=== PATIENT | female | born 1965 | race Caucasian/White ===

== ENCOUNTER 2016-12-11 21:15 | Observation (INO) ==
[2016-12-11] MEDS ORDERED: NITROGLYCERIN SL 0.4 MG TABLET SL STA (21:38)
[2016-12-11] MEDS ORDERED: ONDANSETRON 4 MG/2 ML VIAL IV STA (21:38)
[2016-12-11] MEDS ORDERED: KETOROLAC 30 MG/1 ML VIAL IV STA (21:38)
[2016-12-11] MEDS ORDERED: ASPIRIN CHEW 81 MG TABLET PO STA (21:38)
[2016-12-11] MEDS ORDERED: ONDANSETRON 4 MG/2 ML VIAL ONE (21:57)
[2016-12-11] MEDS ORDERED: ASPIRIN 325 MG TABLET ONE (21:58)
[2016-12-11] MEDS ORDERED: NITROGLYCERIN SL 0.4 MG TABLET SL ONE (21:58)
[2016-12-11 22:28] LABS: Basophils % 0.4 % (0.0-0.8); Eosinophils # 0.2 10*3/uL (0.0-0.87); Eosinophils % 2.4 % (0.00-10.9); Hematocrit 37.3 VOL% (35.7-47.0); Hemoglobin 13.6 GM/DL (12.0-16.0); Immature Granulocytes % 0.4 %; Immature Granulocytes Absolute 0.03 #; Lymphocytes # 2.3 10*3/uL (1.4-4.0); Mean Corpuscular HGB Conc 36.5 GM/DL (32-36); Mean Corpuscular Hemoglobin 33 PG (27-34); Mean Corpuscular Volume 89.9 FL (87-102); Monocytes # 0.5 10*3/uL (0.11-0.8); Monocytes % 6.4 % (1.7-12.7); Neutrophils # 4.2 10*3/uL (1.4-7.4); Neutrophils % 58.4 % (38.7-73.9); Platelet Count 193 T/CUMM (130-400); Red Blood Count 4.15 MC/CUMM (3.8-5.5); Red Cell Distribution Width 13.2 % (9.3-17.3); White Blood Count 7.2 T/CUMM (4-12)
[2016-12-11 22:39] LABS: PT Patient Result 10.8 SECS; Partial Thromboplastin Time 25.2 SECS (0-40)
[2016-12-11 22:40] LABS: Apearance,Urine CLEAR (Clear); Bacteria,Urine Occasional /HPF (Few); Bilirubin,Urine Negative (Negative); Blood, Urine Negative (Negative); Glucose,Urine (UA) Negative (Negative); Ketones,Urine Negative (Negative); Mucus,Urine Occasional /LPF (Occasional); Nitrite,Urine Negative (Negative); Protein,Urine Negative; RBC,Urine 2 /HPF (0-4); Squamous Epithelial Cell,Urine Occasional /HPF (0-10); Urine Color Yellow (Yellow); Urine Specific Gravity 1.018 (1.001-1.035); Urine Urobilinogen < 2.0 EU/DL (0.2-1.0); WBC,Urine 5 /HPF (0-6)
[2016-12-11 22:43] LABS: Barbiturates Screen,Urine Negative (Negative); Benzodiazepines Screen,Urine Positive (Negative); Cannabinoid Screen,Urine Negative (Negative); Opiate Screen,Urine Negative (Negative); Phencyclidine Screen,Urine Negative (Negative)
[2016-12-11 22:55] LABS: Alanine Aminotransferase 59 U/L (13-56); Albumin 3.5 G/DL (3.4-5.0); Alkaline Phosphatase 122 U/L (45-117); Aspartate Amino Transferase 57 U/L (0-37); Bilirubin,Total < 0.39 MG/DL (0.2-1.0); Blood Urea Nitrogen 16 MG/DL (7-18); Calcium 8.7 MG/DL (8.5-10.1); Glucose 109 MG/DL (74-106); Osmolality,Calculated 280.4 MOS/KG (273-304); Potassium 3.8 MMOL/L (3.5-5.1); Sodium 140 MMOL/L (136-145); Total Protein 6.8 G/DL (6.4-8.3); Troponin I Only < 0.015 NG/ML (0.00-0.045)
[2016-12-11] MEDS ORDERED: cefTRIAXone 1,000 MG in SODIUM CHLORIDE 0.9% 100 ML IV STA (23:29)
[2016-12-11] MEDS ORDERED: FLUCONAZOLE INJ 200 MG in PREMIX 1 EACH IV ONE (23:29)
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
[2016-12-11] MEDS ORDERED: SODIUM CHLORIDE 0.9% 100 ML IV ONE (23:45)
[2016-12-11] MEDS ORDERED: cefTRIAXone 1,000 MG VIAL ONE (23:45)
[2016-12-12] MEDS ORDERED: ONDANSETRON 4 MG/2 ML VIAL IV PRN (00:09)
[2016-12-12] MEDS ORDERED: PROMETHAZINE 25 MG TABLET PO PRN (01:36)
[2016-12-12] MEDS ORDERED: CYCLOBENZAPRINE 10 MG TABLET PO PRN (01:36)
[2016-12-12] MEDS ORDERED: ONDANSETRON 4 MG TABLET PO PRN (01:36)
[2016-12-12] MEDS ORDERED: DICYCLOMINE 20 MG TABLET PO PRN (01:36)
--- NOTE | 2016-12-12 01:36 | Hospitalist History & Physical ---
Assessment and Plan (1) Headache Status: Acute Current Visit: Yes (2) UTI (urinary tract infection) Status: Acute Current Visit: Yes (3) Chest pain Status: Acute Assessment and plan: Our plan for this patient will be admitting her to our service. She will be admitted to telemetry we will draw serial cardiac enzymes. Will reevaluate patient in the morning. I am going to consult cardiology. Cardiac disease does run in her family. And he does have an exertional component with her chest pain and it radiates to her neck. Continue home meds as appropriate. Current Visit: Yes History of Present Illness Chief complaint: Chest pain and headache History of present illness: Ms. Koehler is a 51 year old female with past medical history significant for meningioma, PTSD and hypertension who presents to our ER tonight. Apparently earlier this week patient was grabbing for something and felt something pull in her chest. She is then developed a chest pain since then. She complains about a heaviness sensation in her chest. She gets diaphoretic it radiates to her neck. It does have an exertional component. Although the stabbing part does sound very atypical and musculoskeletal patient is concerned that it is her heart. She came in for further evaluation. Patient is also complaining about a severe headache. I was consulted to admit her. Home Medications Medication Instructions Recorded Confirmed Type Buspirone HCl 10 mg PO TID 06/27/15 12/11/16 History Gabapentin 600 tablet PO QID 06/27/15 12/11/16 History Lisinopril 10 mg PO DAILY 06/27/15 12/11/16 History Sertraline [Zoloft] 100 mg PO DAILY 06/27/15 12/11/16 History Cyclobenzaprine [Flexeril] 10 mg PO TID PRN #20 tablet 09/01/16 12/11/16 Rx Promethazine Tab [Phenergan Tab] 25 mg PO Q6H PRN #20 tablet 09/01/16 12/11/16 Rx Dicyclomine Cap/Tab [Bentyl 20 mg PO QID PRN #20 tablet 12/06/16 12/11/16 Rx Cap/Tab] Ondansetron [Ondansetron Odt] 8 mg PO Q4H PRN #10 tab.rapdis 12/06/16 12/11/16 Rx Allergies Allergy/AdvReac Type Severity Reaction Status Date / Time Iodinated Contrast Media - Allergy ANAPHYLAXIS Verified 10/18/14 21:03 Oral and promethazine [From Phenergan] Allergy Unknown/Unable Verified 09/01/16 21:14 to obtain diphenhydramine AdvReac Shakiness Verified 10/18/14 21:03 [From Benadryl] ketorolac [From Toradol] AdvReac RASH Verified 12/11/16 21:27 Opioids - Morphine Analogues AdvReac Gastrointestinal Verified 10/18/14 21:03 Upset Medical,Surgical,& Family Hx - Medical History Cardio: History of: Hypertension No history of: CAD Neurology: History of: Migraine Endocrine: No history of: Diabetes Mellitus (IDDM), Diabetes Mellitus (NIDDM) Respiratory: No history of: Asthma, Bronchitis, Pneumonia Renal: No history of: Renal Problems Gastrointestinal: History of: GERD Musculoskeletal: History of: Back/Neck Problems (chronic back pain), Degenerative Disk Disease, Musculoskeletal Problems Other: History of: Miscellaneous Medical Problems (TMJ) - Surgical History Neurologic Surgeries: Surgical HX of: Neurologic Surgery (craniotomy for benign tumor) Abdominal Surgeries: Surgical HX of: Cholecystectomy Reproductive Surgeries: Surgical HX of;: Hysterectomy - Family History Family History: Reports;: Family Heart Disease, Family Hypertension, Family Stroke - Social History Smoking Status: Never smoker Frequency of Alcohol Use: None Type of Drug Use: None 12 point system: reviewed and no additional remarkable complaints except as stated Exam - Constitutional Vitals: Period Temp Pulse Resp BP Sys/Linn Pulse Ox Last 24 Hr 98.4 F-98.4 F 97-105 18-20 141-171/85-101 96-98 General appearance: morbidly obese - Head Head exam: Present: normal inspection - Eye Eye exam: Present: EOMI Pupils: Present: ANTONIA - ENT ENT exam: Present: normal exam - Neck Neck exam: Present: normal inspection - Respiratory Respiratory exam: Present: clear to auscultation bilaterally - Cardiovascular Cardiovascular exam: Present: regular rate and rhythm, other (Patient does have some chest wall tenderness) - GI/Abdominal GI/Abdominal exam: Present: normal bowel sounds - Extremities Exam Extremities exam: Present: normal inspection - Back Exam Back exam: Present: normal inspection - Neurological Exam Neurological exam: Present: alert, oriented X3 - Psychiatric Psychiatric exam: Present: normal affect - Skin Skin exam: Present: normal color Results - Labs CBC & BMP: 12/11/16 21:58 12/11/16 21:58
[2016-12-12] MEDS: MORPHINE 2 MG/1 ML SYRINGE IV PRN ×2 (02:18→06:12)
[2016-12-12 03:08] LABS: Risk Ratio 9.27; VLDL CHOLESTEROL 61.6 MG/DL
[2016-12-12] MEDS ORDERED: NITROGLYCERIN 2% OINT 1 INCH/GM PACK TOP SCH (06:00)
--- NOTE | 2016-12-12 07:28 | CT Report ---
History is headache Comparison 10/20/2014 The ventricles are normal in size No acute intracranial hemorrhage, mass effect, or evidence of acute cortical stroke seen There is a a large craniotomy defect in the right. The right cerebral hemisphere eggs and the mildly into the defect. There may be some minimal overlying chronic cortical loss in this area. Impression: Large craniotomy defect on the right without acute intracranial hemorrhage seen. The CT exam was performed using one or more of the following dose reduction techniques: Automated exposure control, adjustment of the mA and/or kV according to patient size, or use of iterative reconstruction technique. PROCEDURE INTERPRETED AT [facility] DEPARTMENT OF RADIOLOGY Final Report Signed by: Dr. Patricia Freeman
--- NOTE | 2016-12-12 07:32 | XRay Report ---
Exam: XR chest 2V Indication: Chest pain cough Comparison study: 12/05/2016 chest radiograph Findings: The heart, mediastinum and bony structures are stable from prior. There is no focal consolidation, pneumothorax or pleural effusion identified. Impression: No acute cardiopulmonary process. PROCEDURE INTERPRETED AT [facility] DEPARTMENT OF RADIOLOGY Final Report Signed by: Scott Warren
--- NOTE | 2016-12-12 07:45 | EKG Report ---
Stationary ECG Study [facility] ER Test Date: 12/11/2016 9:23:10 PM Pat Name: PATRICE MCEKON Department: Room: 273 Gender: F Touch Up Edger: Yahir : 1965 Requested by: Enzo Ramos Order Number: [id number] Reading MD: KENDRA SINGH Intervals [place] Rate: 108 P: 61 FL: 159 QRS: 70 QRSD: 65 T: 54 QT: 326 QTc: 390 Interpretive Statements SINUS TACHYCARDIA LOW QRS VOLTAGE IN CHEST LEADS ABNORMAL RHYTHM ECG POOR QUALITY BASELINE Electronically Signed On 12-14-16 15:41:27 CDT by KENDRA SINGH [email or web address]
--- NOTE | 2016-12-12 07:56 | EKG Report ---
Stationary ECG Study [facility] Test Date: 12/12/2016 6:37:58 AM Pat Name: PATRICE MCKEON Department: Room: 273 Gender: F Compliance Attorney: POOJA : 1965 Requested by: Enzo Ramos Order Number: [id number] Reading MD: KENDRA SINGH Intervals [place] Rate: 88 P: 61 MD: 141 QRS: 61 QRSD: 78 T: 43 QT: 373 QTc: 419 Interpretive Statements SINUS RHYTHM LOW QRS VOLTAGE IN PRECORDIAL LEADS Electronically Signed On 12-14-16 15:43:56 CDT by KENDRA SINGH [email or web address]
[2016-12-12] MEDS: GABAPENTIN 600 MG TABLET PO SCH ×2 (08:15→13:48)
[2016-12-12] MEDS ORDERED: ENOXAPARIN 40 MG/0.4 ML SYRINGE SUBCUT SCH (09:00)
[2016-12-12] MEDS ORDERED: ASPIRIN EC 325 MG TABLET PO SCH (09:00)
[2016-12-12] MEDS ORDERED: PANTOPRAZOLE 40 MG TABLET PO SCH (09:00)
[2016-12-12] MEDS ORDERED: LISINOPRIL 10 MG TABLET PO SCH (09:00)
[2016-12-12] MEDS ORDERED: SERTRALINE 100 MG TABLET PO SCH (09:00)
[2016-12-12] MEDS ORDERED: busPIRone 10 MG TABLET PO SCH (09:00)
--- NOTE | 2016-12-12 09:18 | Discharge Summary ---
Hospital Course - Hospital Course Hospital Course: 51-year-old female presents to emergency room with complaints of chest pain. She describes it as a sharp pain and radiates to her right shoulder. It comes on and off and she is been asking the nurses for morphine. Her serial troponins are negative. She has had a heart cath in the past and has been negative. Her EKG looks to be in sinus tachycardia with no ST changes. Cholesterol 278 with trigycerides of 308. Cardiology was consulted and will do a outpatient stress test in the next few days. - Time spent with patient Time with patient DS: Less than 30 minutes (20 min) Specialty Discharge - Follow Up or Referrals Follow up with: Andrés Oscar MD [Physician] - ( outpatient cardiac stress test : SaturdayDecember 19 at 815 am. Do not eat or drink anything after midnight the night before , no caffeine, do not take home meds before the test, but bring your home meds with you. Dr. Oscar December 26 at 840 am) Discharge Plan - Discharge Data Disposition: Disch To Home/Self Care Condition at Discharge: Stable Discharge Diet: heart healthy, low fat, low cholesterol Activity: resume usual activities as tolerated Hygiene: no restrictions Weight Bearing at Discharge: full weight bearing - Discharge Medications New Cefuroxime Tab [Ceftin] 500 mg PO BID #6 tablet Aspirin EC Tab 81 mg PO DAILY #30 tablet Atorvastatin [Lipitor] 40 mg PO BEDTIME #30 tablet Continue Sertraline [Zoloft] 100 mg PO DAILY Lisinopril 10 mg PO DAILY Gabapentin 600 tablet PO QID Buspirone HCl 10 mg PO TID Dicyclomine Cap/Tab [Bentyl Cap/Tab] 20 mg PO QID PRN #20 tablet PRN Reason: Abdominal Pain Ondansetron [Ondansetron Odt] 8 mg PO Q4H PRN #10 tab.rapdis PRN Reason: Nausea Cyclobenzaprine [Flexeril] 10 mg PO TID PRN #20 tablet PRN Reason: muscle spasms, pain levETIRAcetam TAB [Keppra Tab] 250 mg PO BID Discontinued Promethazine Tab [Phenergan Tab] 25 mg PO Q6H PRN #20 tablet PRN Reason: nausea, vomiting or headache - Follow Up or Referral Follow Up: Andrés Oscar MD [Physician] - ( outpatient cardiac stress test : SaturdayDecember 19 at 815 am. Do not eat or drink anything after midnight the night before , no caffeine, do not take home meds before the test, but bring your home meds with you. Dr. Oscar December 26 at 840 am) - Forms/Instructions Instructions: Chest Pain (ED) Additional Discharge Instructions: Outpatient stress test for chest pain if okay with cardiology once they have seen her Exam - Constitutional Vitals: Period Temp Pulse Resp BP Sys/Linn Pulse Ox Last 24 Hr 97.0 F-98.6 F 87-105 18-20 119-171/77-101 96-98 General appearance: no acute distress, morbidly obese - Respiratory Respiratory exam: Present: clear to auscultation bilaterally. Absent: rhonchi, wheezes - Cardiovascular Cardiovascular exam: Present: regular rate and rhythm. Absent: systolic murmur - GI/Abdominal GI/Abdominal exam: Present: normal bowel sounds, soft. Absent: tenderness - Extremities Exam Extremities exam: Absent: edema Discharge Results Procedures and tests throughout hospitalization: Pending Orders 12/11/16 Urine Culture Routine Labs on day of discharge: Labs from last 24 hours 12/12/16 12/12/16 12/12/16 07:40 07:15 04:04 WBC RBC Hgb Hct MCV MCH MCHC RDW Plt Count MPV Neut % (Auto) Lymph % (Auto) [place] % (Auto) Eos % (Auto) Baso % (Auto) Neut # (Auto) Lymph # (Auto) [place] # (Auto) Eos # (Auto) Baso # (Auto) Immature Gran % Nucleated RBC % Immature Gran # Nucleated RBCs # INR PT Patient/Control Mix D-Dimer, Quantitative Circ Anticoag PTT Sodium Potassium Chloride Carbon Dioxide Anion Gap BUN Creatinine GFR Calculation BUN/Creatinine Ratio Glucose POC Glucose 98 Calculated Osmolality Calcium Total Bilirubin AST ALT Alkaline Phosphatase Total Creatine Kinase CK-MB (CK-2) Troponin I < 0.015 < 0.015 Total Protein Albumin Globulin Albumin/Globulin Ratio Triglycerides Cholesterol LDL Cholesterol VLDL Cholesterol HDL Cholesterol Heart Disease Risk Ratio Lipase Urine Color Urine Appearance Urine pH Ur Specific [place] Urine Protein Urine Glucose (UA) Urine Ketones Urine Blood Urine Nitrate Urine Bilirubin Urine Urobilinogen Urine Leukocytes Urine RBC Urine WBC Ur Squamous Epith Cells Urine Bacteria Urine Mucus Ur Culture Indicated? Urine Test Urine Opiates Screen Ur Barbiturates Screen Ur Phencyclidine Scrn U Amphetamine/Methamph U Benzodiazepines Scrn U Cocaine Metab Screen U Cannabinoids Screen 12/12/16 12/12/16 12/11/16 02:24 02:24 22:25 WBC RBC Hgb Hct MCV MCH MCHC RDW Plt Count MPV Neut % (Auto) Lymph % (Auto) [place] % (Auto) Eos % (Auto) Baso % (Auto) Neut # (Auto) Lymph # (Auto) [place] # (Auto) Eos # (Auto) Baso # (Auto) Immature Gran % Nucleated RBC % Immature Gran # Nucleated RBCs # INR PT Patient/Control Mix D-Dimer, Quantitative Circ Anticoag PTT Sodium Potassium Chloride Carbon Dioxide Anion Gap BUN Creatinine GFR Calculation BUN/Creatinine Ratio Glucose POC Glucose Calculated Osmolality Calcium Total Bilirubin AST ALT Alkaline Phosphatase Total Creatine Kinase CK-MB (CK-2) Troponin I < 0.015 Total Protein Albumin Globulin Albumin/Globulin Ratio Triglycerides 308 H Cholesterol 278 H LDL Cholesterol 194.0 VLDL Cholesterol 61.6 HDL Cholesterol 30 L Heart Disease Risk Ratio 9.27 Lipase Urine Color Urine Appearance Urine pH Ur Specific [place] Urine Protein Urine Glucose (UA) Urine Ketones Urine Blood Urine Nitrate Urine Bilirubin Urine Urobilinogen Urine Leukocytes Urine RBC Urine WBC Ur Squamous Epith Cells Urine Bacteria Urine Mucus Ur Culture Indicated? Urine Test Urine Opiates Screen Negative Ur Barbiturates Screen Negative Ur Phencyclidine Scrn Negative U Amphetamine/Methamph Negative U Benzodiazepines Scrn Positive H U Cocaine Metab Screen Negative U Cannabinoids Screen Negative 12/11/16 12/11/16 12/11/16 22:25 21:58 21:58 WBC RBC Hgb Hct MCV MCH MCHC RDW Plt Count MPV Neut % (Auto) Lymph % (Auto) [place] % (Auto) Eos % (Auto) Baso % (Auto) Neut # (Auto) Lymph # (Auto) [place] # (Auto) Eos # (Auto) Baso # (Auto) Immature Gran % Nucleated RBC % Immature Gran # Nucleated RBCs # INR 1.0 PT Patient/Control Mix 10.8 D-Dimer, Quantitative Circ Anticoag PTT 25.2 Sodium 140 Potassium 3.8 Chloride 106 Carbon Dioxide 26 Anion Gap 11.8 BUN 16 Creatinine 0.70 GFR Calculation 131 BUN/Creatinine Ratio 22.00 H Glucose 109 H POC Glucose Calculated Osmolality 280.4 Calcium 8.7 Total Bilirubin < 0.39 AST 57 H ALT 59 H Alkaline Phosphatase 122 H Total Creatine Kinase 92 CK-MB (CK-2) < 1.0 Troponin I < 0.015 Total Protein 6.8 Albumin 3.5 Globulin 3.3 Albumin/Globulin Ratio 1.0 L Triglycerides Cholesterol LDL Cholesterol VLDL Cholesterol HDL Cholesterol Heart Disease Risk Ratio Lipase 142.0 Urine Color Yellow Urine Appearance Clear Urine pH 6.0 Ur Specific [place] 1.018 Urine Protein Negative Urine Glucose (UA) Negative Urine Ketones Negative Urine Blood Negative Urine Nitrate Negative Urine Bilirubin Negative Urine Urobilinogen < 2.0 H Urine Leukocytes Moderate H Urine RBC 2 Urine WBC 5 Ur Squamous Epith Cells Occasional Urine Bacteria Occasional Urine Mucus Occasional Ur Culture Indicated? Results to follow Urine Test Negative Urine Opiates Screen Ur Barbiturates Screen Ur Phencyclidine Scrn U Amphetamine/Methamph U Benzodiazepines Scrn U Cocaine Metab Screen U Cannabinoids Screen 12/11/16 12/11/16 21:58 21:58 WBC 7.2 RBC 4.15 Hgb 13.6 Hct 37.3 MCV 89.9 MCH 33 MCHC 36.5 H RDW 13.2 Plt Count 193 MPV 10.0 Neut % (Auto) 58.4 Lymph % (Auto) 32.0 [place] % (Auto) 6.4 Eos % (Auto) 2.4 Baso % (Auto) 0.4 Neut # (Auto) 4.2 Lymph # (Auto) 2.3 [place] # (Auto) 0.5 Eos # (Auto) 0.2 Baso # (Auto) 0.0 Immature Gran % 0.4 Nucleated RBC % 0.0 Immature Gran # 0.03 Nucleated RBCs # 0.00 INR PT Patient/Control Mix D-Dimer, Quantitative <= 0.5 Circ Anticoag PTT Sodium Potassium Chloride Carbon Dioxide Anion Gap BUN Creatinine GFR Calculation BUN/Creatinine Ratio Glucose POC Glucose Calculated Osmolality Calcium Total Bilirubin AST ALT Alkaline Phosphatase Total Creatine Kinase CK-MB (CK-2) Troponin I Total Protein Albumin Globulin Albumin/Globulin Ratio Triglycerides Cholesterol LDL Cholesterol VLDL Cholesterol HDL Cholesterol Heart Disease Risk Ratio Lipase Urine Color Urine Appearance Urine pH Ur Specific [place] Urine Protein Urine Glucose (UA) Urine Ketones Urine Blood Urine Nitrate Urine Bilirubin Urine Urobilinogen Urine Leukocytes Urine RBC Urine WBC Ur Squamous Epith Cells Urine Bacteria Urine Mucus Ur Culture Indicated? Urine Test Urine Opiates Screen Ur Barbiturates Screen Ur Phencyclidine Scrn U Amphetamine/Methamph U Benzodiazepines Scrn U Cocaine Metab Screen U Cannabinoids Screen Preliminary micro results at discharge 12/11/16 Unknown Urine Culture - Preliminary Urine,Voided No Growth at 12 hours. DS: Provider Date of admission: 12/12/16 00:09 Primary care physician: . No PCP Attending physician on admission: Enzo Ramos MD Consults: 12/12/16 00:11 Consult to Physician [CONS] Routine Comment: Consulting Provider: Cardiology - [facility] Consult to Specialist Group: Cardiology Person Notified: [email or web address] Date Notified: 12/12/16 Time Notified: 08:35 12/12/16 02:08 Consult to Pastoral Services [CONS] Routine Comment: Pastoral Screen: Request [facility] Visit Discharging clinician: Yokasta Kemp MD
--- NOTE | 2016-12-12 09:22 | Cardiology Consult Note ---
Assessment and Plan - Time spent with patient Time spent with patient: Greater than 30 minutes (1) Atypical chest pain Status: Acute Assessment and plan: See plan of care listed below. Current Visit: Yes (2) Hypertension Status: Chronic Assessment and plan: See plan of care listed below. Current Visit: Yes (3) Dyslipidemia Status: Acute Assessment and plan: See plan of care listed below. Current Visit: Yes (4) History of seizures Status: Chronic Assessment and plan: See plan of care listed below. Current Visit: Yes (5) Obesity Status: Chronic Assessment and plan: See plan of care listed below. Current Visit: Yes (6) UTI (urinary tract infection) Status: Acute Assessment and plan: See plan of care listed below. 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 Koehler is a 51 year old female patient without known history of coronary artery disease, not routinely followed by cardiology. She has cardiac risk factors significant for obesity, hypertension, sedentary lifestyle and family history of coronary artery disease (dad and mom both had massive heart attacks in their 60s). She is a past medical history of brain tumor with multiple brain surgeries and seizures (reports her last seizure was approximately 1 month ago, routinely sees Jyotsna at [facility]). She is a lifetime non-smoker. She reports that she underwent cardiac workup approximately 4 years ago. Per her report, she had a heart catheterization at [facility] which was negative. She has not followed up with cardiology since that time. Patient was in her usual state of health until yesterday when she began experiencing midsternal chest discomfort. She describes this pain as a sharp, stabbing pain that radiated to her right shoulder. She developed the chest discomfort while she was grabbing the handrails and pulling herself up the stairs. She reports that she felt something pull in her chest then subsequently developed the stabbing/sharp chest pain. Pain is exacerbated with cough, deep breathing and with certain positions and sudden arm motions. Associated with shortness of breath, nausea and diaphoresis. She denies any exertional component. This lasted a couple of hours. She rates her pain a 9 out of 10. Her stepson was worried about that she needed to be further evaluated in the emergency department. Therefore, she was transported to [facility] for further workup. She reports that her chest discomfort was relieved after receiving IV morphine in the ER. Nitroglycerin had no effect on her chest pain. She has been admitted under hospitalist's service and housed on the telemetry unit. Cardiology has been consulted to further evaluate her chest discomfort. Of note, patient just recently had right knee scope and has been using crutches and walker for ambulation. Upon exam, her chest pain is reproducible to light palpation. Patient was seen and examined on the telemetry unit. Per nursing staff, she has been very adamant about her pain medications and has been requesting morphine around the clock. Her chest pain is easily reproducible to light palpation. Cardiac biomarkers have been negative 3. EKG is without ST changes. Patient's chest pain as atypical in nature and felt the most likely musculoskeletal. Recommend treatment with nonsteroidals. Cardiac biomarkers have been negative 3 and EKG does not reveal any ST changes. Per patient report, she had a normal cardiac stress test at [facility] approximately 4 years ago. I feel that patient will mostly benefit from outpatient stress testing at [facility] as she does have cardiac risk factors that include: obesity, hypertension, sedentary lifestyle and family history of coronary artery disease. I have discussed this with the patient and she is in favor of this plan. I will discuss with Dr. Oscar and await his additional recommendations. ASSESSMENT/PLAN: 1. ATYPICAL CHEST PAIN - [place] to be most likely musculoskeletal in nature. Recommend treatment with nonsteroidals. Cardiac biomarkers have been negative 3 and EKG does not reveal any ST changes. Per patient report, she had a normal cardiac stress test at [facility] approximately 4 years ago. I feel that patient will mostly benefit from outpatient stress testing at [facility] as she does have cardiac risk factors that include: obesity, hypertension, sedentary lifestyle and family history of coronary artery disease. I have discussed this with the patient and she is in favor of this plan. I will discuss with Dr. Oscar and await his additional recommendations. 2. HYPERTENSION - Overall has been under well control. Continue current plan of care. 3. DYSLIPIDEMIA - Lipid panel reviewed. Statin was initiated. Patient will need lipid panel rechecked in approximately 6 weeks. 4. HISTORY OF SEIZURES - Continue current plan of care with Patrick. I will discuss with Dr. Oscar regarding the safety of stress testing with her history of seizure activity. Further recommendations to follow. 5. OBESITY - Counseled patient on the importance of weight loss. 6. UTI - Management per attending. CC: Yokasta Kemp MD - Home Medications and Allergies Home Medications: Home Medications Medication Instructions Recorded Confirmed Type Buspirone HCl 10 mg PO TID 06/27/15 12/11/16 History Gabapentin 600 tablet PO QID 06/27/15 12/11/16 History Lisinopril 10 mg PO DAILY 06/27/15 12/11/16 History Sertraline [Zoloft] 100 mg PO DAILY 06/27/15 12/11/16 History Cyclobenzaprine [Flexeril] 10 mg PO TID PRN #20 tablet 09/01/16 12/11/16 Rx Dicyclomine Cap/Tab [Bentyl 20 mg PO QID PRN #20 tablet 12/06/16 12/11/16 Rx Cap/Tab] Ondansetron [Ondansetron Odt] 8 mg PO Q4H PRN #10 tab.rapdis 12/06/16 12/11/16 Rx Cefuroxime Tab [Ceftin] 500 mg PO BID #6 tablet 12/12/16 Rx levETIRAcetam TAB [Keppra Tab] 250 mg PO BID 12/12/16 12/12/16 History Allergies/Adverse Reactions: Allergies Allergy/AdvReac Type Severity Reaction Status Date / Time Iodinated Contrast Media - Allergy ANAPHYLAXIS Verified 10/18/14 21:03 Oral and promethazine [From Phenergan] Allergy Unknown/Unable Verified 09/01/16 21:14 to obtain diphenhydramine AdvReac Shakiness Verified 10/18/14 21:03 [From Benadryl] ketorolac [From Toradol] AdvReac RASH Verified 12/11/16 21:27 - Constitutional Constitutional: Present: fever(s), lethargy, malaise, weakness. Absent: chills , weight gain, weight loss - Cardiovascular Cardiovascular: Present: as per HPI, chest pain at rest, diaphoresis, dyspnea, radiating jaw, neck or arm pain. Absent: claudication, dyspnea on exertion, edema, lightheadedness, orthopnea, palpitations, PND - Respiratory Respiratory: Present: as per HPI, cough, dyspnea, pain on inspiration. Absent: hemoptysis, dyspnea on exertion, wheezing, snoring - Gastrointestinal Gastrointestinal: Present: nausea. Absent: abdominal pain, change in bowel habits, coffee ground emesis, constipation, diarrhea, heartburn, hematemesis, hematochezia, loose stools, melena, vomiting - Neurological Neurological: Absent: abnormal speech, behavioral changes, dizziness, syncope Medical,Surgical,& Family Hx - Medical History Cardio: History of: Hypertension No history of: CAD Neurology: History of: Migraine Endocrine: No history of: Diabetes Mellitus (IDDM), Diabetes Mellitus (NIDDM) Respiratory: No history of: Asthma, Bronchitis, Pneumonia Renal: No history of: Renal Problems Gastrointestinal: History of: GERD Musculoskeletal: History of: Back/Neck Problems (chronic back pain), Degenerative Disk Disease, Musculoskeletal Problems Other: History of: Miscellaneous Medical Problems (TMJ) - Surgical History Cardiac Surgeries: Sugical HX of: Cardiac Catheterization Neurologic Surgeries: Surgical HX of: Neurologic Surgery (craniotomy for benign tumor) Abdominal Surgeries: Surgical HX of: Cholecystectomy Reproductive Surgeries: Surgical HX of;: Hysterectomy - Family History Family History: Reports;: Family Heart Disease, Family Hypertension, Family Stroke - Social History Smoking Status: Never smoker Frequency of Alcohol Use: None Type of Drug Use: None Marital Status: Lives With:: Spouse Functional capacity: uses cane/walker Physical Examination Vital Signs Temp Pulse Resp BP Pulse Ox 98.4 F 105 H 20 141/101 96 12/11/16 21:18 12/11/16 21:18 12/11/16 21:18 12/11/16 21:18 12/11/16 21:18 Exam: General: Appears well with no apparent distress. Pleasant and cooperative. Appears comfortable. HEENT: PERRL, normocephalic, atraumatic. Mucous membranes moist. No jaundice noted. Conjunctiva moist and clear, sclerae anicteric Neck: No JVD/HJR, no thyromegaly or lymphadenopathy noted. No carotid bruit appreciated Cardiac: Regular rate and rhythm. No murmur rub or gallop. Chest wall: Extremely tender to light palpation. Lungs: Clear to auscultation without accessory muscle use to assist the respiratory pattern. Not requiring oxygen. Abdomen: Soft, bowel sounds normoactive. Nontender and nondistended. No abdominal bruit or thrill noted. No masses noted. Extremities: No clubbing, cyanosis noted. No edema noted. Upper extremity pulses 2+. Lower extremity pulses 2+. Capillary refill less than 3 seconds. Skin: No unusual lesions or rashes. No skin breakdown appreciated. Neuro: Awake, alert and oriented 3. Moves all extremities well without hemiparesis or paralysis. No essential tremor is appreciated. Result/EKG - Labs CBC & BMP: 12/11/16 21:58 12/11/16 21:58 Lab Results: I have reviewed the past 24 hour labs Labs: Laboratory Results - last 24 hr 12/11/16 12/11/16 12/11/16 21:58 21:58 21:58 WBC 7.2 RBC 4.15 Hgb 13.6 Hct 37.3 MCV 89.9 MCH 33 MCHC 36.5 H RDW 13.2 Plt Count 193 MPV 10.0 Neut % (Auto) 58.4 Lymph % (Auto) 32.0 Clarke % (Auto) 6.4 Eos % (Auto) 2.4 Baso % (Auto) 0.4 Neut # (Auto) 4.2 Lymph # (Auto) 2.3 Clarke # (Auto) 0.5 Eos # (Auto) 0.2 Baso # (Auto) 0.0 Immature Gran % 0.4 Nucleated RBC % 0.0 Immature Gran # 0.03 Nucleated RBCs # 0.00 INR PT Patient/Control Mix D-Dimer, Quantitative <= 0.5 Circ Anticoag PTT Sodium 140 Potassium 3.8 Chloride 106 Carbon Dioxide 26 Anion Gap 11.8 BUN 16 Creatinine 0.70 GFR Calculation 131 BUN/Creatinine Ratio 22.00 H Glucose 109 H POC Glucose Calculated Osmolality 280.4 Calcium 8.7 Total Bilirubin < 0.39 AST 57 H ALT 59 H Alkaline Phosphatase 122 H Total Creatine Kinase 92 CK-MB (CK-2) < 1.0 Troponin I < 0.015 Total Protein 6.8 Albumin 3.5 Globulin 3.3 Albumin/Globulin Ratio 1.0 L Triglycerides Cholesterol LDL Cholesterol VLDL Cholesterol HDL Cholesterol Heart Disease Risk Ratio Lipase 142.0 Urine Color Urine Appearance Urine pH Ur Specific [place] Urine Protein Urine Glucose (UA) Urine Ketones Urine Blood Urine Nitrate Urine Bilirubin Urine Urobilinogen Urine Leukocytes Urine RBC Urine WBC Ur Squamous Epith Cells Urine Bacteria Urine Mucus Ur Culture Indicated? Urine Test Urine Opiates Screen Ur Barbiturates Screen Ur Phencyclidine Scrn U Amphetamine/Methamph U Benzodiazepines Scrn U Cocaine Metab Screen U Cannabinoids Screen 12/11/16 12/11/16 12/11/16 21:58 22:25 22:25 WBC RBC Hgb Hct MCV MCH MCHC RDW Plt Count MPV Neut % (Auto) Lymph % (Auto) Clarke % (Auto) Eos % (Auto) Baso % (Auto) Neut # (Auto) Lymph # (Auto) Clarke # (Auto) Eos # (Auto) Baso # (Auto) Immature Gran % Nucleated RBC % Immature Gran # Nucleated RBCs # INR 1.0 PT Patient/Control Mix 10.8 D-Dimer, Quantitative Circ Anticoag PTT 25.2 Sodium Potassium Chloride Carbon Dioxide Anion Gap BUN Creatinine GFR Calculation BUN/Creatinine Ratio Glucose POC Glucose Calculated Osmolality Calcium Total Bilirubin AST ALT Alkaline Phosphatase Total Creatine Kinase CK-MB (CK-2) Troponin I Total Protein Albumin Globulin Albumin/Globulin Ratio Triglycerides Cholesterol LDL Cholesterol VLDL Cholesterol HDL Cholesterol Heart Disease Risk Ratio Lipase Urine Color Yellow Urine Appearance Clear Urine pH 6.0 Ur Specific [place] 1.018 Urine Protein Negative Urine Glucose (UA) Negative Urine Ketones Negative Urine Blood Negative Urine Nitrate Negative Urine Bilirubin Negative Urine Urobilinogen < 2.0 H Urine Leukocytes Moderate H Urine RBC 2 Urine WBC 5 Ur Squamous Epith Cells Occasional Urine Bacteria Occasional Urine Mucus Occasional Ur Culture Indicated? Results to follow Urine Test Negative Urine Opiates Screen Negative Ur Barbiturates Screen Negative Ur Phencyclidine Scrn Negative U Amphetamine/Methamph Negative U Benzodiazepines Scrn Positive H U Cocaine Metab Screen Negative U Cannabinoids Screen Negative 12/12/16 12/12/16 12/12/16 02:24 02:24 04:04 WBC RBC Hgb Hct MCV MCH MCHC RDW Plt Count MPV Neut % (Auto) Lymph % (Auto) Clarke % (Auto) Eos % (Auto) Baso % (Auto) Neut # (Auto) Lymph # (Auto) Clarke # (Auto) Eos # (Auto) Baso # (Auto) Immature Gran % Nucleated RBC % Immature Gran # Nucleated RBCs # INR PT Patient/Control Mix D-Dimer, Quantitative Circ Anticoag PTT Sodium Potassium Chloride Carbon Dioxide Anion Gap BUN Creatinine GFR Calculation BUN/Creatinine Ratio Glucose POC Glucose Calculated Osmolality Calcium Total Bilirubin AST ALT Alkaline Phosphatase Total Creatine Kinase CK-MB (CK-2) Troponin I < 0.015 < 0.015 Total Protein Albumin Globulin Albumin/Globulin Ratio Triglycerides 308 H Cholesterol 278 H LDL Cholesterol 194.0 VLDL Cholesterol 61.6 HDL Cholesterol 30 L Heart Disease Risk Ratio 9.27 Lipase Urine Color Urine Appearance Urine pH Ur Specific [place] Urine Protein Urine Glucose (UA) Urine Ketones Urine Blood Urine Nitrate Urine Bilirubin Urine Urobilinogen Urine Leukocytes Urine RBC Urine WBC Ur Squamous Epith Cells Urine Bacteria Urine Mucus Ur Culture Indicated? Urine Test Urine Opiates Screen Ur Barbiturates Screen Ur Phencyclidine Scrn U Amphetamine/Methamph U Benzodiazepines Scrn U Cocaine Metab Screen U Cannabinoids Screen 12/12/16 12/12/16 07:15 07:40 WBC RBC Hgb Hct MCV MCH MCHC RDW Plt Count MPV Neut % (Auto) Lymph % (Auto) [place] % (Auto) Eos % (Auto) Baso % (Auto) Neut # (Auto) Lymph # (Auto) Clarke # (Auto) Eos # (Auto) Baso # (Auto) Immature Gran % Nucleated RBC % Immature Gran # Nucleated RBCs # INR PT Patient/Control Mix D-Dimer, Quantitative Circ Anticoag PTT Sodium Potassium Chloride Carbon Dioxide Anion Gap BUN Creatinine GFR Calculation BUN/Creatinine Ratio Glucose POC Glucose 98 Calculated Osmolality Calcium Total Bilirubin AST ALT Alkaline Phosphatase Total Creatine Kinase CK-MB (CK-2) Troponin I < 0.015 Total Protein Albumin Globulin Albumin/Globulin Ratio Triglycerides Cholesterol LDL Cholesterol VLDL Cholesterol HDL Cholesterol Heart Disease Risk Ratio Lipase Urine Color Urine Appearance Urine pH Ur Specific [place] Urine Protein Urine Glucose (UA) Urine Ketones Urine Blood Urine Nitrate Urine Bilirubin Urine Urobilinogen Urine Leukocytes Urine RBC Urine WBC Ur Squamous Epith Cells Urine Bacteria Urine Mucus Ur Culture Indicated? Urine Test Urine Opiates Screen Ur Barbiturates Screen Ur Phencyclidine Scrn U Amphetamine/Methamph U Benzodiazepines Scrn U Cocaine Metab Screen U Cannabinoids Screen Specialty Discharge - Follow Up or Referrals
[2016-12-12] MEDS ORDERED: levETIRAcetam 250 MG TABLET PO SCH (09:30)
[2016-12-12] MEDS ORDERED: DEXTROSE 50% 25 GM/50 ML VIAL IV PRN (09:46)
[2016-12-12] MEDS ORDERED: GLUCAGON 1 MG VIAL IM PRN (09:46)
[2016-12-12 12:01] VITALS: BP 119/63
[2016-12-12] MEDS ORDERED: ATORVASTATIN 20 MG TABLET PO SCH (21:00)
[2016-12-12] MEDS ORDERED: ATORVASTATIN 40 MG TABLET PO SCH (21:00)
[2016-12-12] MEDS ORDERED: cefTRIAXone 1,000 MG in SODIUM CHLORIDE 0.9% 100 ML IV SCH (21:00)
== END 2016-12-12 14:15 | disposition home or self-care (01) ==
LOC: N.ED 21:15 → N.EDINP 21:15 → SUATTDRO 12-12 00:09 → N.TELES 12-12 00:34
PROVIDERS: ADMIT Internal Medicine; ATTEND Internal Medicine

== ENCOUNTER 2018-02-03 01:05 | Inpatient (IN) ==
[2018-02-03] MEDS ORDERED: SODIUM CHLORIDE 0.9% 1,000 ML IV STA (01:23)
[2018-02-03 01:45] LABS: Basophils % 0.4 % (0.0-0.8); Eosinophils # 0.1 10*3/uL (0.0-0.87); Eosinophils % 1.6 % (0.00-10.9); Hematocrit 38.7 VOL% (35.7-47.0); Hemoglobin 13.4 GM/DL (12.0-16.0); Immature Granulocytes % 0.7 %; Immature Granulocytes Absolute 0.04 #; Lymphocytes # 1.7 10*3/uL (1.4-4.0); Lymphocytes % 31.3 % (21.3-54.2); Mean Corpuscular HGB Conc 34.6 GM/DL (32-36); Mean Corpuscular Hemoglobin 32 PG (27-34); Mean Corpuscular Volume 92.4 FL (87-102); Mean Platelet Volume 10.5 FL (9.6-12.0); Monocytes # 0.4 10*3/uL (0.11-0.8); Monocytes % 7.3 % (1.7-12.7); Neutrophils # 3.2 10*3/uL (1.4-7.4); Neutrophils % 58.7 % (38.7-73.9); Platelet Count 148 T/CUMM (130-400); Red Blood Count 4.19 MC/CUMM (3.8-5.5); Red Cell Distribution Width 12.9 % (9.3-17.3); White Blood Count 5.5 T/CUMM (4-12)
[2018-02-03 02:12] LABS: Apearance,Urine CLOUDY (Clear); Barbiturates Screen,Urine Negative (Negative); Benzodiazepines Screen,Urine Positive (Negative); Bilirubin,Urine Negative (Negative); Blood, Urine Negative (Negative); Cannabinoid Screen,Urine Negative (Negative); Glucose,Urine (UA) Negative (Negative); Ketones,Urine Negative (Negative); Nitrite,Urine Negative (Negative); Opiate Screen,Urine Negative (Negative); Phencyclidine Screen,Urine Negative (Negative); Protein,Urine Negative; RBC,Urine 13 /HPF (0-4); Squamous Epithelial Cell,Urine Few /HPF (0-10); Urine Color Yellow (Yellow); WBC,Urine 53 /HPF (0-6)
[2018-02-03 02:22] LABS: Alanine Aminotransferase 72 U/L (13-56); Albumin 3.5 G/DL (3.4-5.0); Alkaline Phosphatase 136 U/L (45-117); Aspartate Amino Transferase 80 U/L (0-37); Blood Urea Nitrogen 11 MG/DL (7-18); Calcium 9.5 MG/DL (8.5-10.1); Glucose 140 MG/DL (74-106); Potassium 3.7 MMOL/L (3.5-5.1); Sodium 143 MMOL/L (136-145); Total Protein 7.2 G/DL (6.4-8.3)
[2018-02-03 02:49] LABS: Salicylate < 2.8 MG/DL (2.8-20)
[2018-02-03 02:54] LABS: Acetaminophen < 2.0 UG/ML (10-30)
[2018-02-03] MEDS ORDERED: ONDANSETRON 4 MG/2 ML VIAL IV PRN (03:29)
[2018-02-03] MEDS: SODIUM CHLORIDE 0.9% 1,000 ML IV SCH ×2 (04:38→14:08)
[2018-02-03] MEDS: cefTRIAXone 1,000 MG in SYRINGE 1 EACH IV SCH (04:38)
[2018-02-03] MEDS: HYDROmorphone 2 MG/1 ML VIAL IV PRN ×3 (05:05→17:21)
[2018-02-03] MEDS: ALPRAZolam 0.5 MG TABLET PO PRN (05:10)
[2018-02-03 07:58] LABS: Alanine Aminotransferase 63 U/L (13-56); Alkaline Phosphatase 113 U/L (45-117); Aspartate Amino Transferase 65 U/L (0-37); Bilirubin,Total < 0.39 MG/DL (0.2-1.0); Blood Urea Nitrogen 9 MG/DL (7-18); Calcium 8.4 MG/DL (8.5-10.1); Glucose 146 MG/DL (74-106); Osmolality,Calculated 289.7 MOS/KG (273-304); Sodium 145 MMOL/L (136-145); Total Protein 6.4 G/DL (6.4-8.3)
[2018-02-03] MEDS: ENOXAPARIN 40 MG/0.4 ML SYRINGE SUBCUT SCH (08:12)
[2018-02-03] MEDS: PANTOPRAZOLE 40 MG TABLET PO SCH (08:12)
[2018-02-03] MEDS: GABAPENTIN 400 MG CAPSULE PO SCH (08:13)
[2018-02-03] MEDS: HALOPERIDOL 5 MG TABLET PO SCH (21:57)
[2018-02-04] MEDS: SODIUM CHLORIDE 0.9% 1,000 ML IV SCH ×2 (00:50→10:48)
[2018-02-04] MEDS: HYDROmorphone 2 MG/1 ML VIAL IV PRN (04:06)
[2018-02-04] MEDS: cefTRIAXone 1,000 MG in SYRINGE 1 EACH IV SCH (04:07)
[2018-02-04 05:26] LABS: Basophils % 0.8 % (0.0-0.8); Eosinophils # 0.1 10*3/uL (0.0-0.87); Eosinophils % 2.7 % (0.00-10.9); Hematocrit 35.7 VOL% (35.7-47.0); Hemoglobin 11.9 GM/DL (12.0-16.0); Immature Granulocytes % 0.5 %; Immature Granulocytes Absolute 0.02 #; Lymphocytes # 1.1 10*3/uL (1.4-4.0); Lymphocytes % 28.8 % (21.3-54.2); Mean Corpuscular HGB Conc 33.3 GM/DL (32-36); Mean Corpuscular Hemoglobin 31 PG (27-34); Mean Corpuscular Volume 94.2 FL (87-102); Mean Platelet Volume 11.4 FL (9.6-12.0); Monocytes # 0.3 10*3/uL (0.11-0.8); Monocytes % 7.3 % (1.7-12.7); Neutrophils # 2.2 10*3/uL (1.4-7.4); Neutrophils % 59.9 % (38.7-73.9); Platelet Count 137 T/CUMM (130-400); Red Blood Count 3.79 MC/CUMM (3.8-5.5); Red Cell Distribution Width 13.6 % (9.3-17.3); White Blood Count 3.7 T/CUMM (4-12)
[2018-02-04 05:57] LABS: Bilirubin,Total 0.6 MG/DL (0.2-1.0); Calcium 8.7 MG/DL (8.5-10.1); Potassium 4.1 MMOL/L (3.5-5.1); Total Protein 6.3 G/DL (6.4-8.3)
[2018-02-04] MEDS: PANTOPRAZOLE 40 MG TABLET PO SCH (08:07)
[2018-02-04] MEDS: ENOXAPARIN 40 MG/0.4 ML SYRINGE SUBCUT SCH (08:07)
[2018-02-04] MEDS: GABAPENTIN 400 MG CAPSULE PO SCH (08:07)
[2018-02-04] MEDS ORDERED: NIFEdipine 10 MG CAPSULE PO PRN (08:25)
[2018-02-04] MEDS: SODIUM CHLORIDE 0.45% 1,000 ML IV SCH ×2 (09:35→23:02)
[2018-02-04] MEDS: LORazepam 2 MG/1 ML VIAL IV PRN ×3 (12:26→22:24)
[2018-02-04] MEDS: HALOPERIDOL 5 MG TABLET PO SCH (20:43)
[2018-02-04] MEDS ORDERED: PRAZOSIN 1 MG CAPSULE PO SCH (21:00)
[2018-02-05] MEDS: cefTRIAXone 1,000 MG in SYRINGE 1 EACH IV SCH (05:14)
[2018-02-05] MEDS: SODIUM CHLORIDE 0.45% 1,000 ML IV SCH ×2 (05:15→09:04)
[2018-02-05 06:07] LABS: Calcium 8.2 MG/DL (8.5-10.1); Osmolality,Calculated 285.7 MOS/KG (273-304); Potassium 3.5 MMOL/L (3.5-5.1)
[2018-02-05] MEDS: GABAPENTIN 400 MG CAPSULE PO SCH (09:03)
[2018-02-05] MEDS: PANTOPRAZOLE 40 MG TABLET PO SCH (09:04)
[2018-02-05] MEDS: ENOXAPARIN 40 MG/0.4 ML SYRINGE SUBCUT SCH (09:04)
[2018-02-05] MEDS: ALPRAZolam 0.5 MG TABLET PO PRN (09:06)
[2018-02-05 12:49] VITALS: BP 132/58
== END 2018-02-05 13:55 | disposition home or self-care (01) | DRG 918 ==
LOC: N.ED 01:05 → SUATTDRO 03:29 → N.EDINP 03:29 → N.ICU 04:10 → N.4E 02-04 11:00
PROVIDERS: ADMIT Internal Medicine; ATTEND Internal Medicine

== ENCOUNTER 2018-02-19 10:51 | Observation (INO) ==
[2018-02-19] MEDS ORDERED: NITROGLYCERIN SL 0.4 MG TABLET SL ONE (11:22)
[2018-02-19] MEDS ORDERED: NITROGLYCERIN SL 0.4 MG TABLET SL STA (11:33)
[2018-02-19] MEDS ORDERED: ONDANSETRON 4 MG/2 ML VIAL IV STA (11:38)
[2018-02-19] MEDS ORDERED: NITROGLYCERIN 2% OINT 1 INCH/GM PACK TOP STA (11:38)
[2018-02-19] MEDS ORDERED: MORPHINE 4 MG/1 ML VIAL IV STA (11:38)
[2018-02-19 12:21] LABS: Basophils % 0.7 % (0.0-0.8); Eosinophils # 0.2 10*3/uL (0.0-0.87); Eosinophils % 2.7 % (0.00-10.9); Hematocrit 39.5 VOL% (35.7-47.0); Hemoglobin 13.7 GM/DL (12.0-16.0); Immature Granulocytes % 0.4 %; Immature Granulocytes Absolute 0.02 #; Lymphocytes # 1.9 10*3/uL (1.4-4.0); Lymphocytes % 34.2 % (21.3-54.2); Mean Corpuscular HGB Conc 34.7 GM/DL (32-36); Mean Corpuscular Hemoglobin 32 PG (27-34); Mean Corpuscular Volume 92.3 FL (87-102); Mean Platelet Volume 11.4 FL (9.6-12.0); Monocytes # 0.4 10*3/uL (0.11-0.8); Monocytes % 7.3 % (1.7-12.7); Neutrophils # 3.1 10*3/uL (1.4-7.4); Neutrophils % 54.7 % (38.7-73.9); Platelet Count 179 T/CUMM (130-400); Red Blood Count 4.28 MC/CUMM (3.8-5.5); White Blood Count 5.6 T/CUMM (4-12)
[2018-02-19 12:30] LABS: PT Patient Result 10.7 SECS; Partial Thromboplastin Time 29.2 SECS (0-40)
[2018-02-19 12:40] LABS: Albumin 3.9 G/DL (3.4-5.0); Bilirubin,Total 0.4 MG/DL (0.2-1.0); Osmolality,Calculated 282.3 MOS/KG (273-304); Potassium 4.2 MMOL/L (3.5-5.1); Total Protein 7.4 G/DL (6.4-8.3)
[2018-02-19 13:11] LABS: Apearance,Urine CLEAR (Clear); Bacteria,Urine Occasional /HPF (Few); Bilirubin,Urine Negative (Negative); Blood, Urine Negative (Negative); Glucose,Urine (UA) Negative (Negative); Ketones,Urine Negative (Negative); Nitrite,Urine Negative (Negative); Protein,Urine Negative; RBC,Urine 2 /HPF (0-4); Squamous Epithelial Cell,Urine Occasional /HPF (0-10); Urine Color Straw (Yellow); Urine Specific Gravity 1.002 (1.001-1.035); Urine Urobilinogen < 2.0 EU/DL (0.2-1.0); WBC,Urine 2 /HPF (0-6)
[2018-02-19 13:16] LABS: Barbiturates Screen,Urine Negative (Negative); Benzodiazepines Screen,Urine Negative (Negative); Cannabinoid Screen,Urine Negative (Negative); Opiate Screen,Urine Negative (Negative); Phencyclidine Screen,Urine Negative (Negative)
[2018-02-19] MEDS ORDERED: HYDROmorphone 2 MG/1 ML VIAL IV STA (16:11)
[2018-02-19] MEDS ORDERED: NITROGLYCERIN SL 0.4 MG TABLET SL PRN (17:50)
[2018-02-19] MEDS ORDERED: ONDANSETRON ODT 4 MG TABLET PO PRN (17:54)
[2018-02-19 20:42] LABS: Risk Ratio 6.03; VLDL CHOLESTEROL 25.8 MG/DL
[2018-02-19] MEDS: ALPRAZolam 0.5 MG TABLET PO PRN (22:10)
[2018-02-19] MEDS: ENOXAPARIN 40 MG/0.4 ML SYRINGE SUBCUT SCH (22:10)
[2018-02-19] MEDS: NITROFURANTOIN MACRO/MONO 100 MG CAPSULE PO SCH (22:10)
[2018-02-19] MEDS: PRAZOSIN 1 MG CAPSULE PO SCH (22:10)
[2018-02-19] MEDS: GABAPENTIN 400 MG CAPSULE PO SCH (22:10)
[2018-02-19] MEDS: NITROGLYCERIN 2% OINT 1 INCH/GM PACK TOP SCH (22:42)
[2018-02-19] MEDS: HALOPERIDOL 5 MG TABLET PO SCH (22:55)
[2018-02-19] MEDS: busPIRone 15 MG TABLET PO SCH (22:55)
[2018-02-20] MEDS: NITROGLYCERIN 2% OINT 1 INCH/GM PACK TOP SCH ×4 (01:21→17:01)
[2018-02-20] MEDS: busPIRone 15 MG TABLET PO SCH ×3 (10:02→21:15)
[2018-02-20] MEDS: NITROFURANTOIN MACRO/MONO 100 MG CAPSULE PO SCH ×3 (10:02→21:15)
[2018-02-20] MEDS: GABAPENTIN 400 MG CAPSULE PO SCH ×3 (10:02→21:14)
[2018-02-20] MEDS: PANTOPRAZOLE 40 MG TABLET PO SCH ×2 (10:02→15:38)
[2018-02-20 10:13] LABS: Albumin 3.4 G/DL (3.4-5.0); Bilirubin,Total 0.5 MG/DL (0.2-1.0); Calcium 8.7 MG/DL (8.5-10.1); Osmolality,Calculated 281.3 MOS/KG (273-304); Total Protein 6.7 G/DL (6.4-8.3)
[2018-02-20] MEDS: MORPHINE 4 MG/1 ML VIAL IV PRN ×2 (15:46→22:09)
[2018-02-20] MEDS: ALPRAZolam 0.5 MG TABLET PO PRN (15:52)
[2018-02-20] MEDS: PRAZOSIN 1 MG CAPSULE PO SCH (21:14)
[2018-02-20] MEDS: HALOPERIDOL 5 MG TABLET PO SCH (21:15)
[2018-02-20] MEDS: ENOXAPARIN 40 MG/0.4 ML SYRINGE SUBCUT SCH (21:15)
[2018-02-21] MEDS: NITROGLYCERIN 2% OINT 1 INCH/GM PACK TOP SCH ×5 (00:05→23:44)
[2018-02-21 04:24] LABS: Red Blood Count 3.86 MC/CUMM (3.8-5.5); White Blood Count 4.8 T/CUMM (4-12)
[2018-02-21 04:25] LABS: Basophils % 0.4 % (0.0-0.8); Eosinophils # 0.2 10*3/uL (0.0-0.87); Eosinophils % 3.8 % (0.00-10.9); Hematocrit 35.9 VOL% (35.7-47.0); Hemoglobin 12.4 GM/DL (12.0-16.0); Immature Granulocytes % 0.2 %; Immature Granulocytes Absolute 0.01 #; Lymphocytes # 1.6 10*3/uL (1.4-4.0); Lymphocytes % 33.1 % (21.3-54.2); Mean Corpuscular HGB Conc 34.5 GM/DL (32-36); Mean Corpuscular Hemoglobin 32 PG (27-34); Mean Platelet Volume 10.6 FL (9.6-12.0); Monocytes # 0.4 10*3/uL (0.11-0.8); Monocytes % 7.5 % (1.7-12.7); Neutrophils # 2.6 10*3/uL (1.4-7.4); Platelet Count 157 T/CUMM (130-400)
[2018-02-21] MEDS: MORPHINE 4 MG/1 ML VIAL IV PRN ×4 (04:37→23:39)
[2018-02-21 04:51] LABS: Calcium 8.7 MG/DL (8.5-10.1); Osmolality,Calculated 282.3 MOS/KG (273-304); Potassium 4.1 MMOL/L (3.5-5.1)
[2018-02-21] MEDS: GABAPENTIN 400 MG CAPSULE PO SCH ×3 (08:31→20:32)
[2018-02-21] MEDS: NITROFURANTOIN MACRO/MONO 100 MG CAPSULE PO SCH ×2 (08:31→20:32)
[2018-02-21] MEDS: PANTOPRAZOLE 40 MG TABLET PO SCH ×2 (08:32→16:06)
[2018-02-21] MEDS: busPIRone 15 MG TABLET PO SCH ×3 (08:33→20:32)
[2018-02-21] MEDS ORDERED: SUMAtriptan 25 MG TABLET PO PRN (13:22)
[2018-02-21] MEDS: ALPRAZolam 0.5 MG TABLET PO PRN (16:06)
[2018-02-21] MEDS: HALOPERIDOL 5 MG TABLET PO SCH (20:32)
[2018-02-21] MEDS: ENOXAPARIN 40 MG/0.4 ML SYRINGE SUBCUT SCH (20:32)
[2018-02-21] MEDS: PRAZOSIN 1 MG CAPSULE PO SCH (20:36)
[2018-02-22] MEDS: MORPHINE 4 MG/1 ML VIAL IV PRN (04:50)
[2018-02-22] MEDS: NITROGLYCERIN 2% OINT 1 INCH/GM PACK TOP SCH (05:53)
[2018-02-22 07:42] VITALS: BP 110/72
[2018-02-22] MEDS: PANTOPRAZOLE 40 MG TABLET PO SCH (08:44)
[2018-02-22] MEDS: NITROFURANTOIN MACRO/MONO 100 MG CAPSULE PO SCH (08:44)
[2018-02-22] MEDS: GABAPENTIN 400 MG CAPSULE PO SCH (08:45)
[2018-02-22] MEDS: busPIRone 15 MG TABLET PO SCH (08:45)
[2018-02-22] MEDS: ALPRAZolam 0.5 MG TABLET PO PRN (08:45)
== END 2018-02-22 10:42 | disposition home or self-care (01) ==
LOC: N.EDINP 10:51 → N.ED 10:51 → N.EDINP 19:15 → N.TELEN 19:30
PROVIDERS: ADMIT Internal Medicine; ATTEND Internal Medicine